=== PATIENT | male | born 1960 | race Caucasian/White ===

== ENCOUNTER 2022-09-29 10:11 | Outpatient (CLI) | payer BC, SELFPAY | END 2022-09-29 10:12 | disposition home or self-care (01) | PROVIDERS: PCP Family Medicine; Visit Provider Surgery | DX: Z12.11 Encounter for screening for malignant neoplasm of colon (principal); K63.5 Polyp of colon; K57.30 Diverticulosis of large intestine without perforation or abscess without bleeding | CPT/HCPCS: 45380; 88305; 99153; J2250; J3010 ==

== ENCOUNTER 2023-06-02 08:07 | Outpatient (CLI) | payer BC, SELFPAY | END 2023-06-02 08:08 | disposition home or self-care (01) | PROVIDERS: PCP Family Medicine; Visit Provider Family Medicine | DX: E78.5 Hyperlipidemia, unspecified (principal); Z12.5 Encounter for screening for malignant neoplasm of prostate | CPT/HCPCS: 80048; 80061; 84153 ==

== ENCOUNTER 2023-10-18 11:45 | Emergency (ER) | payer BC, SELFPAY ==
[2023-10-18 12:06] VITALS: BP 175/104; PULSE 60; RESP 16; TEMP 36.4; O2SAT 96; BMI 28.1
--- NOTE | 2023-10-18 12:22 | CT_ITS ---
Patient: GISELLA CONTRERAS Facility:?[facility] Patient ID:?[id number] Site Patient ID:?[id number]. Site :?[id number] Study:?CT-ST Neck 91CC ISOVUE 370-10/18/2023 1:50:29 PM Ordering Physician:?DR. LR Final Report: INDICATION: Right jaw and neck pain. TECHNIQUE: CT soft tissue of the neck was acquired with 91 cc Isovue 370 contrast. COMPARISON: None available. FINDINGS: Skull base: Unremarkable. Pharynx/Larynx/Trachea: Epiglottis is normal. Airway is patent. Adjacent soft tissues are normal. Salivary glands: Unremarkable. Thyroid gland: Unremarkable. No significant nodules. Lymph nodes: No lymphadenopathy. Vessels: Minimal atherosclerotic calcifications of the carotid bifurcations without significant luminal narrowing. The internal jugular veins are patent. Bones: Severe multilevel degenerative disc disease throughout the cervical spine. Misc: No inflammation, mass or fluid collection. Postoperative changes involving the left orbit. Lung apices: Unremarkable. IMPRESSION: Unremarkable soft tissue CT of the neck. Please note that all CT scans at this facility use dose modulation, iterative reconstruction, and/or weight-based dosing when appropriate to reduce radiation dose to as low as reasonably achievable. Dictated by Awilda Duncan MD @ 10/18/2023 2:07:06 PM Signed by:?Awilda Duncan MD @10/18/2023 2:07:06 PM (Electronic Signature)
[2023-10-18 12:49] LABS: Basophils Absolute Auto 0.03 K/uL (0.00-0.30); Basophils Percent Auto 0.5 % (0.0-3.0); Eosinophils Absolute Auto 0.34 K/uL (0.00-0.50); Eosinophils Percent Auto 5.7 % (0.0-7.0); Hemoglobin* 15.1 gm/dL (13.5-17.5); Immature Granulocytes Abs Auto 0.01 K/uL (0.00-0.30); Immature Granulocytes Pct Auto 0.2 %; Lymphocytes Absolute Auto 1.22 K/uL (0.90-2.90); Lymphocytes Percent Auto 20.6 % (20-44); Mean Corpuscular HGB Conc 34 gm/dL (32-36); Mean Corpuscular Hemoglobin 34 pg (26-34); Mean Corpuscular Volume 100 fL (80-100); Neutrophils Absolute Auto 3.73 K/uL (1.7-7.0); Platelet Count* 237 K/uL (140-440); RDW Coefficient of Variation % 12.4 % (11.5-15.5); White Blood Count* 5.92 K/uL (4.50-11.00)
[2023-10-18 12:56] LABS: Slide Review Reflex No
[2023-10-18 12:59] LABS: Chloride* 105 mmol/L (96-114); Potassium* 4.1 mmol/L (3.6-5.1); Sodium* 139 mmol/L (135-149)
[2023-10-18 13:02] LABS: Anion Gap 6 mEq/L (7-15); Blood Urea Nitrogen* 21 mg/dL (7-30); Carbon Dioxide* 28 mmol/L (20-32); Creatinine* 0.7 mg/dL (0.5-1.5); Est. Creatinine Clearance* 75.05; Estimated Glomerular Filt Rate 105 ml/min
[2023-10-18 13:03] LABS: Calcium* 9.3 mg/dL (8.4-10.6); Glucose* 89 mg/dL (60-115)
--- NOTE | 2023-10-18 13:37 | ED.GENADULT ---
HPI - General Adult General Chief complaint: Jaw Injury/Pain Stated complaint: Sore throat/R side jaw Time Seen by Provider: 10/18/23 12:10 Related Data Home Medications Medication Instructions Recorded Confirmed multivitamin 1 tab PO QAM 03/30/22 10/18/23 ibuprofen 200 mg tablet (Advil) 400 mg PO QAM 06/02/23 10/18/23 azithromycin 250 mg tablet mg PO 10/18/23 Previous Rx's Medication Instructions Recorded lorazepam 0.5 mg tablet 0.5 mg PO BID PRN anxiety #30 tabs 06/02/23 escitalopram oxalate 10 mg tablet 10 mg PO QDAY #90 tabs 08/03/23 (Lexapro) prednisone 20 mg tablet 20 mg PO BID #10 tabs 10/18/23 Allergies Allergy/AdvReac Type Severity Reaction Status Date / Time amoxicillin Allergy Unknown occured in Verified 10/18/23 13:47 childhood [facility] Medical History (Updated 10/18/23 @ 14:29 by Vanessa Veliz MD) MARILEE (generalized anxiety disorder) ?F41.1 - Generalized anxiety disorder (ICD-10) COVID-19 virus infection ?U07.1 - COVID-19 (ICD-10) Ulnar neuropathy ?G56.20 - Lesion of ulnar nerve, unspecified upper limb (ICD-10) Osteoarthritis of right knee ?M17.11 - Unilateral primary osteoarthritis, right knee (ICD-10) Hyperlipidemia ?E78.5 - Hyperlipidemia, unspecified (ICD-10) History of Sivan's disease ?Z87.39 - Personal history of other diseases of the musculoskeletal system and connective tissue (ICD-10) Blindness of left eye ?H54.40 - Blindness, one eye, unspecified eye (ICD-10) Abnormal cardiovascular stress test (09/2009) ?R94.39 - Abnormal result of other cardiovascular function study (ICD-10) Surgical History (Updated 07/04/23 @ 22:45 by Tonny Diego MD) Status post total right knee replacement (09/09/21) ?Z96.651 - Presence of right artificial knee joint (ICD-10) History of nasal septoplasty ?Z98.890 - Other specified postprocedural states (ICD-10) History of inguinal hernia repair ?Z98.890 - Other specified postprocedural states (ICD-10) ?Z87.19 - Personal history of other diseases of the digestive system (ICD-10) History of detached retina repair (1983) ?Z98.890 - Other specified postprocedural states (ICD-10) ?Z86.69 - Personal history of other diseases of the nervous system and sense organs (ICD-10) Family History , [facility]) Brother Asthma Father Heart disease Hyperlipidemia Social History (Updated 06/02/23 @ 08:16 by Temi Baker ~ [facility], [facility]) Narrative: , 1 kid, [employer]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[employer], THC, nonsmoker, social EtOH What is your current living situation?: I presently have a place to live Problems where you live: no known problems In the past 12 months, utilities in danger of being shut off: no In past 12 months, lack of transportation kept you from medical appts, meetings, work, or getting things needed for daily living: no In the past 12 mos, have been you worried that your food would run out before you had money to buy more?: never true In the past 12 mos, the food you bought just didn't last and you didn't have money to buy more?: never true Smoking Status: Former smoker How often does anyone, including family, friends and others, physically hurt you: never How often does anyone, including family, friends and others, insult or talk down to you: never How often does anyone, including family, friends and others, threaten you with harm: never How often does anyone, including family, friends and others, scream or curse at you: never Little interest or pleasure in doing things: not at all Feeling down, depressed, or hopeless: not at all Exam Narrative: Exam Narrative: Vital signs as noted above. In general, an alert, well-appearing patient. Head: Normocephalic, atraumatic. Eyes: Pupils are equal reactive. Extraocular movements are full. Conjunctivae are normal. ENT: Mucous membranes are moist. Throat is mildly erythematous but no edema or exudate. Dentition is somewhat poor but I do not feel any abscess or swelling in the mouth. Jaw is normal without swelling or erythema, there are no submandibular masses, no parotid swelling. Neck: Supple without lymphadenopathy. No masses or stridor. Heart: Regular rate and rhythm. No murmur or rub. Lungs: Clear bilaterally. No increased work of breathing, crackles or wheezes. Abdomen: Soft and nontender. No organomegaly. Extremities: Well perfused. No edema. No calf tenderness. Pulses intact. Neurologic: Patient is alert and oriented to person and place. Speech is fluent. Face is symmetric. Moves all extremities equally. Affect: Normal. Skin: Warm and dry. Well perfused. Const: Vital Signs, click to edit/add: Vital Signs - 24 hr 10/18/23 12:06 Temperature 97.6 F Pulse Rate [Pulse Oximeter] 60 Respiratory Rate 16 Blood Pressure [Ri ght Upper Arm] 175/104 H Pulse Oximetry 96 Oxygen Delivery Me thod Room Air Documenting provider has reviewed patient's vital signs: yes Course Course ED Course: Patient presents with pain in the right jaw and neck which has been constant, no clear explanation on exam. He did have some dental evaluation although I wonder if this is in fact related to a tooth that will require a root canal. He does have some cold sensitivity on that side. I have relatively low suspicion of mass or abscess given exam, but discussed with him that we can do some imaging to rule out something like a retropharyngeal abscess. I do not think this is cardiac. It does not sound consistent with trigeminal neuralgia. He was treated with azithromycin recently for possible sinus infection, has not noted any improvement. Also notes that symptoms do not affect his upper teeth as they have in the past when he has had a sinus infection. If lab and CT is negative then I would refer him on to a an oral surgeon for further evaluation of the lower molar. CT scan by my review did not show any abscess or other significant findings. Read as unremarkable by Radiology. Labs are normal including a normal CBC, metabolic panel and minimally elevated CRP at 2. I have reviewed all this with him. Etiology of his symptoms is unclear at this time but I would encourage him to get further evaluation of the tooth. It does not appear that additional antibiotics are likely to be helpful. Recommend ibuprofen 400 mg plus Tylenol 1000 mg 3 times daily with food, I prescribed prednisone as well. Return for significant worsening. Vital Signs Vital signs: Initial Vital Signs Temperature 97.6 F 10/18/23 12:06 Temperature Source Temporal Artery Scan 10/18/23 12:06 Pulse Rate 60 10/18/23 12:06 Pulse Rhythm Regular 10/18/23 12:06 Respiratory Rate 16 10/18/23 12:06 Blood Pressure 175/104 H 10/18/23 12:06 Blood Pressure Mean 127 H 10/18/23 12:06 Blood Pressure Position Sitting 10/18/23 12:06 Pulse Oximetry 96 10/18/23 12:06 Oxygen Delivery Method Room Air 10/18/23 12:06 Vital Signs Temperature 97.6 F 10/18/23 12:06 Pulse Rate 60 10/18/23 12:06 Respiratory Rate 16 10/18/23 12:06 Blood Pressure 175/104 H 10/18/23 12:06 Pulse Oximetry 96 10/18/23 12:06 Oxygen Delivery Method Room Air 10/18/23 12:06 Temperature 97.6 F 10/18/23 12:06 Pulse Rate 60 10/18/23 12:06 Respiratory Rate 16 10/18/23 12:06 Blood Pressure 175/104 H 10/18/23 12:06 Pulse Oximetry 96 10/18/23 12:06 Oxygen Delivery Method Room Air 10/18/23 12:06 Medical Decision Making Lab Data Labs: Lab Results 10/18/23 Range/Units 12:34 WBC 5.92 (4.50-11.00) K/uL RBC 4.50 (4.30-5.90) m/uL Hgb 15.1 (13.5-17.5) gm/dL Hct 45.0 (37.0-53.0) % MCV 100 (80-100) fL MCH 34 (26-34) pg MCHC 34 (32-36) gm/dL RDW Coeff of Nithin 12.4 (11.5-15.5) % Plt Count 237 (140-440) K/uL Neut % (Auto) 63.0 (42.0-72.0) % Lymph % (Auto) 20.6 (20-44) % Perkins % (Auto) 10.0 (0.0-11.0) % Eos % (Auto) 5.7 (0.0-7.0) % Baso % (Auto) 0.5 (0.0-3.0) % Neut # (Auto) 3.73 (1.7-7.0) K/uL Lymph # (Auto) 1.22 (0.90-2.90) K/uL Perkins # (Auto) 0.60 (0.00-0.90) K/UL Eos # (Auto) 0.34 (0.00-0.50) K/uL Baso # (Auto) 0.03 (0.00-0.30) K/uL Abs Immat Gran (auto) 0.01 (0.00-0.30) K/uL Imm/Tot Granulo (auto) 0.2 % Sodium 139 (135-149) mmol/L Potassium 4.1 (3.6-5.1) mmol/L Chloride 105 (96-114) mmol/L Carbon Dioxide 28 (20-32) mmol/L Anion Gap 6 L (7-15) mEq/L BUN 21 (7-30) mg/dL Creatinine 0.7 (0.5-1.5) mg/dL Estimated Creat Clear 75.05 Estimated GFR 105 ml/min Glucose 89 (60-115) mg/dL Calcium 9.3 (8.4-10.6) mg/dL C-Reactive Protein 2.0 H (0.5-1.0) mg/dL Discharge Plan Discharge Clinical Impression: Pain, dental Patient Disposition: Home, Self-Care Condition: Stable Instructions: Toothache (ED) Additional Instructions: Your evaluation here today is normal, there is no evidence of an infection, mass, or other abnormality to explain her symptoms. I would recommend that you see an oral surgeon and have further evaluation of your tooth. At this time, I do not think additional antibiotics will be helpful. I would recommend a combination of ibuprofen 400 mg plus Tylenol 1000 mg 3 times daily with food, and prednisone as prescribed to decrease inflammation. Prescriptions: New prednisone 20 mg tablet 20 mg PO BID Qty: 10 0RF No Action ibuprofen [Advil] 200 mg tablet 400 mg PO QAM lorazepam 0.5 mg tablet 0.5 mg PO BID PRN (Reason: anxiety) Qty: 30 0RF multivitamin Tablet 1 tab PO QAM azithromycin 250 mg tablet PO escitalopram oxalate [Lexapro] 10 mg tablet 10 mg PO QDAY Qty: 90 1RF Follow Up/Referrals: Tonny Diego MD [Primary Care Provider] - Stand Alone Forms: [facility] Info Instructions
== END 2023-10-18 14:40 | disposition home or self-care (01) ==
PROVIDERS: Emergency Provider Emergency Medicine; PCP Family Medicine
DX: K08.89 Other specified disorders of teeth and supporting structures (principal)
CPT/HCPCS: 36415; 70491; 80048; 85025; 86140; 96374; 99284; 99285; Q9967

== ENCOUNTER 2023-12-02 16:33 | Outpatient (CLI) | payer BC, SELFPAY ==
--- NOTE | 2023-12-02 16:45 | CT_ITS ---
Patient: GISELLA CONTRERAS Facility:?[facility] Patient ID:?[id number] Site Patient ID:?[id number]. Site :?[id number] Study:?CT-Sinus WITHOUT-12/02/2023 4:45:40 PM Ordering Physician:JATIN Final Report: Indication: Chronic sinusitis. Technique: Noncontrast axial CT of the paranasal sinuses with coronal reformats are provided. No comparisons. Findings: Trace mucosal thickening within the frontal ethmoidal recesses and sphenoid sinuses. The remainder of the visualized paranasal sinuses are clear. The ostiomeatal complexes are patent bilaterally. The visualized intraorbital contents appear within normal limits. Incidental bilateral neva bullosa. Moderate leftward nasal septal deviation with prominent bony spur contacting the inferior left turbinate. Impression: 1. Trace inflammatory changes within the frontal ethmoidal recesses and sphenoid sinuses. 2. Leftward nasal septal deviation. Please note that all CT scans at this facility use dose modulation, iterative reconstruction, and/or weight-based dosing when appropriate to reduce radiation dose to as low as reasonably achievable. Dictated by Boone Torres MD @ 12/02/2023 5:33:18 PM Signed by:?Boone Torres MD @12/02/2023 5:33:18 PM (Electronic Signature)
== END 2023-12-02 16:34 | disposition home or self-care (01) ==
PROVIDERS: PCP Family Medicine; Visit Provider Family Medicine
DX: J32.9 Chronic sinusitis, unspecified (principal); J32.3 Chronic sphenoidal sinusitis; J34.2 Deviated nasal septum
CPT/HCPCS: 70486

== ENCOUNTER 2024-06-23 08:25 | Outpatient (CLI) | payer BC, SELFPAY | END 2024-06-23 08:26 | disposition home or self-care (01) | PROVIDERS: PCP Family Medicine; Visit Provider Family Medicine | DX: E78.2 Mixed hyperlipidemia (principal); I10 Essential (primary) hypertension; Z12.5 Encounter for screening for malignant neoplasm of prostate | CPT/HCPCS: 80048; 80061; G0103 ==

== ENCOUNTER 2024-08-07 11:18 | Outpatient (CLI) | payer BC, SELFPAY ==
--- NOTE | 2024-09-05 08:18 | W.PM.SLEEP ---
Sleep Study Details Details Interpreting Provider: Wendy Date of Sleep Study: 08/07/24 Sleep Study Details: STUDY TYPE:? Home unattended ? BMI:? Not recorded ORDERING PROVIDER:? Wendy INDICATION:? Concerned about sleep apnea ? SLEEP SUMMARY:? 561 minutes monitored RESPIRATORY SUMMARY:? AHI 13.8 Low oxygen 81 2.5% of study oxygen less than 90% Snoring 98% PERIODIC LIMB MOVEMENTS OF SLEEP:? Not recorded CARDIAC:? 52-78, mean 56.8 beats per minute IMPRESSION:? Mild obstructive sleep apnea RECOMMENDATION: Treatment options include CPAP, dental appliance and/or airway expansion surgery. If weight loss is indicated that would also potentially be beneficial.
== END 2024-08-07 11:19 | disposition home or self-care (01) ==
LOC: SLEEP 11:18
PROVIDERS: PCP Family Medicine; Visit Provider Otolaryngology
DX: G47.33 Obstructive sleep apnea (adult) (pediatric) (principal)
CPT/HCPCS: 95806

== ENCOUNTER 2024-11-28 08:28 | Outpatient (CLI) | payer BC, SELFPAY | END 2024-11-28 08:29 | disposition home or self-care (01) | LOC: FBOREF 08:28 | PROVIDERS: PCP Family Medicine; Visit Provider Family Medicine | DX: I10 Essential (primary) hypertension (principal); Z01.818 Encounter for other preprocedural examination | CPT/HCPCS: 80048; 85025 ==

== ENCOUNTER 2025-02-13 08:12 | Outpatient (CLI) | payer BC, SELFPAY ==
[2025-02-13] MEDS: REGADENOSON 0.4 MG/5 ML SYRINGE IVP (10:14)
[2025-02-13] MEDS: SODIUM CHLORIDE 0.9 % (FLUSH) 10 ML SYRINGE IVF (10:14)
[2025-02-13 10:23] VITALS: BP 145/87; PULSE 78; RESP 16
--- OUTSIDE RECORDS SUMMARY | 2025-02-13 11:04 | XMS_ITS | Clinical Summary ---
Author Organization [employer] [facility] [employer] Address [address] [place] [id number] Care Team Providers Care Senior Web Architect Name Role Phone Aura Daniels MD Primary Care Provider [phone] Eitan Huerta V Unavailable [phone] Allergies Active Allergy Reactions Criticality Noted Date Comments Amoxicillin Rash 03/21/2010 Medications No known medications Active Problems Problem Noted Date Diagnosed Date Sore throat 09/01/2021 Blind left eye 10/05/2019 Overview (10/05/2019): after trauma age 23 Chronic pain of right knee 10/05/2019 Overview (10/05/2019): unstable, history of injury in 8th grade Hyperlipidemia LDL goal <130 Overview (11/17/2011): myalgias with statins, cholestoff and fish oil, tobacco cessation. Resolved Problems Problem Noted Date Diagnosed Date Resolved Date Abnormal cardiovascular stress test 10/29/2009 Overview (10/18/2009): -ETT 10/11/09: [address] depression with peak exercise, changed to upsloping ST depression in recovery. Tobacco abuse 10/28/2009 Overview (10/18/2009): -quit 10/11/09 Immunizations Immunization Administration Dates Next Due Influenza, IIV3 (Age >=3 years) 06/30/2019,08/21,08/09/2012 Influenza, IIV4 08/30/2018,06/26/2014 Measles 12/30/1976 Tdap 11/16/2011 Zoster (Shingrix-RZV, recombinant) 10/05/2019 Family History Medical History Relation Name Comments Allergic rhinitis Brother 2 Asthma Brother 2 x2 Allergies Brother 3 seasonal Asthma Brother 3 Heart Disease [place] x[place] Hyperlipidemia Father Relation Name Status Comments Brother 1 Alive x3 Brother 2 Alive Brother 3 Alive Father (Age 72) Maternal Grandfather Maternal Grandmother Mother Alive Paternal Grandfather Paternal Grandmother Sister Alive Son Alive Social History Tobacco Use Types Packs/Day Years Used Date Smoking Tobacco: Former Cigarettes Q uit: 09/26/2017 Smokeless Tobacco: Never Tobacco Cessation:Counseling Given: Yes Alcohol Use Standard Drinks/Week Comments Yes 0 (1 standard drink = 0.6 oz pur e alcohol) social PHQ-2 Answer Date Recorded PHQ-2 Score 0 10/05/2019 Social Connections Answer Date Recorded Frequency of Communication with Friends and Fami ly Not on file 08/23/2021 Financial Resource Strain Answer Date R ecorded Difficulty of Paying Living Expenses Not on file 08/23/2021 Difficulty of Paying Living Expenses Not on file 08/23/2021 Sex and Gender Information Value Date Recorded Sex Assigned at Not on file Legal Sex Male 5:23 AM SUSTAINABILITY COMMUNICATOR Gender Identity Not on file Sexual Orientation Not on file 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 Not on file Not on file Not on file Obstetrics History Last Filed Vital Signs Vital Sign Reading Time Taken Comments Blood Pressure 166/80 09/01/2021 12:04 PM SUSTAINABILITY COMMUNICATOR Pulse 69 09/01/2021 12:04 PM SUSTAINABILITY COMMUNICATOR Temperature 36.8 C (98.2 F) 09/01/2021 12:04 PM SUSTAINABILITY COMMUNICATOR Respiratory Rate 18 09/01/2021 12:04 PM SUSTAINABILITY COMMUNICATOR Oxygen Saturation 98% 09/01/2021 12:04 PM SUSTAINABILITY COMMUNICATOR Inhaled Oxygen Concentration - - Weight 85.4 kg (188 lb 4.8 oz) 09/01/2021 12:11 PM SUSTAINABILITY COMMUNICATOR Height 173 cm (5' 8.11) 10/05/2019 8:17 AM SUSTAINABILITY COMMUNICATOR Body Mass Index 28.54 10/05/2019 8:17 AM SUSTAINABILITY COMMUNICATOR Plan of Treatment Health Maintenance Due Date Last Done Comments HIV for age 15-65 1977 Hepatitis C screening for age 18-79 02/02/1980 Pneumococcal series for age 50+ (1 of 1 - PCV) 02/02/2012 Zoster (shingles) series for age 50+ (2 of 2) 11/30/2019 10/05/2019 BMI (ht and wt on same day) for age 18+ 10/05/2020 10/05/2019, 08/30/2018, 10/26/2017, Additional history exists Depression screening for age 12+ 10/05/2020 10/05/2019, 10/26/2017, 12/19/2015 Tetanus booster 11/15/2021 11/16/2011 Colonoscopy through age 75 09/06/2022 09/06/2012, COVID-19 vaccine series ( season) 2024 08/31/2021, 12/11/2020, 11/15/2020 Lipids for age 45-75 10/05/2024 10/05/2019, 10/25/2017, 12/19/2015, Additional history exists Influenza Vaccine (Season Ended) 2025 06/30/2019, 08/30/2018, 06/26/2014, Additional history exists RSV vaccine for adults or (1 - 1-dose 75+ series) 2037 Tdap Completed 11/16/2011 Hepatitis B series for 19+ Aged Out N o longer eligible based on patient's age to complete this topic Procedures Procedure Name Priority Date/Time Associated Diagnosis Comments LIPID PANEL Routine 10/05/2019 9:25 AM SUSTAINABILITY COMMUNICATOR Hyperlipidemia LDL goal <130 COLONOSCOPY SCREENING Routine 09/06/2012 Screen for colon cancer from Last 3 Months or Most Recently Relevant to Health Maintenance Results * (ABNORMAL) LIPID PANEL (10/05/2019 9:25 AM SUSTAINABILITY COMMUNICATOR) CHOLESTEROL,TOTAL 274(H) 100 - 199 mg/dL 10/05/2019 10:01 AM SUSTAINABILITY COMMUNICATOR [facility] TRIGLYCERIDES 161(H) <150 mg/dL 10/05/2019 10:01 AM SUSTAINABILITY COMMUNICATOR [facility] HDL CHOLESTEROL 54 >40 mg/dL 0 10:01 AM SUSTAINABILITY COMMUNICATOR [facility] NON-HDL CHOLESTEROL 220(H) <145 mg/dl 10/05/2019 10:01 AM SUSTAINABILITY COMMUNICATOR [facility] CHOL/HDL RATIO 5.07(H) <4.50 10/05/2019 10:01 AM SUSTAINABILITY COMMUNICATOR [facility] LDL CHOLESTEROL 188(H) <=130 mg/dL 10/05/2019 10:01 AM SUSTAINABILITY COMMUNICATOR [facility] PROVIDER ORDERED STATUS FASTING 10/05/2019 10:01 AM SUSTAINABILITY COMMUNICATOR [facility] Blood BLOOD SPECIMEN / Unknown Venipuncture / Unknown 10/05/2019 9:25 AM SUSTAINABILITY COMMUNICATOR 10/05/2019 9:27 AM SUSTAINABILITY COMMUNICATOR Jaimee Del Cid NP CHEMISTRY Final Result [facility] [address] [place] [address] * COLONOSCOPY SCREENING (09/06/2012) Aura Daniels MD GI PROCEDURE ORD Final Res ult from Last 3 Months or Most Recently Relevant to Health Maintenance Insurance [facility] Advance Directives * Full Code (Latest Code Status on File) Date Activated Date Inactivated Comments 10/18/2009 8:38 AM 10/18/2009 10:51 PM Care Teams Senior Web Architect Relationship Specialty Start Date End Date Aura Daniels MD [address] [facility] [address] PCP - General 10/11/09 Eitan Huerta V [address] [facility] [place] Op[facility] Family [facility] 10/06/11
--- NOTE | 2025-02-13 11:07 | W.PM.STED ---
Stress Test Note Date Date Seen: 02/13/25 Date of test: 02/13/25 Providers Primary care provider: Tonny Diego Stress test physician: Kaley Aviles Stress Test Note Stress test ordered: Lexiscan Indication for test: Dyspnea Stress test medicine: Lexiscan Results discussion: Resting EKG: Sinus rhythm, 62 beats per minute. Resting blood pressure: 148/81 Stress test: Patient was consented on the ordered stress test which was a Lexiscan, agreed to proceed. Patient had some mild short-lived dyspnea and dizziness after the infusion of the regadenoson. Patient had no chest pain, there was no arrhythmia, no EKG changes diagnostic of any ischemia. Patient had no concerning changes with his blood pressure. Impression: Subjectively mild dyspnea and dizziness but no chest pain, objectively negative EKG portion of this Lexiscan. Follow up suggested: Patient will be getting his post stress nuclear images and then discharge to home. He will await contact from his ordering physician once the final report is in. The nuclear medicine images will be read and couple this for a full formal diagnostic.
== END 2025-02-13 11:15 | disposition home or self-care (01) ==
LOC: STRESS 08:13
PROVIDERS: PCP Family Medicine; Visit Provider Family Medicine
DX: R06.09 Other forms of dyspnea (principal)
CPT/HCPCS: 78452; 93016; 93017; A9500; J2785